=== PATIENT | male | born 1945 | race Caucasian/White ===

== ENCOUNTER 2018-06-12 15:11 | Outpatient (CLI) | payer OTHER ==
--- NOTE | 2018-06-12 16:23 | MRI ---
MRI OF THE LEFT SHOULDER 06/12/18 PROVIDED CLINICAL HISTORY: Left shoulder pain. FINDINGS: Evaluation is limited by patient motion. There is full thickness, partial width tearing involving the anterior distal supraspinatus tendon at the footplate. The components of the rotator cuff appear otherwise grossly intact. There is a focal o void area of T1 and T2 hypointensity associated with the infraspinatus tendon near the foot plate whi ch presumably reflects sequela of prior calcific tendonitis. The long head biceps tendon appears bubba sly intact and normally located. The glenoid labrum and glenohumeral articular cartilage are suboptimally evaluated but appears grossl y normal. The acromioclavicular joint osteoarthrosis is demonstrated with mild mass effect upon the subjacent s upraspinatus. The amount of fluid within the glenohumeral joint appears physiologic. There is greater than physiologic subacromial subdeltoid bursal fluid. IMPRESSION: 1. Limited exam. 2. Full thickness, partial width tear involving the anterior distal supraspinatus tendon. 3. Acromioclavicular joint osteoarthrosis. POS: [facility]
== END 2018-06-12 15:12 | disposition home or self-care (01) ==
LOC: BICMRI 15:11
PROVIDERS: ATTEND Orthopaedic Surgery
DX: M75.102 Unspecified rotator cuff tear or rupture of left shoulder, not specified as traumatic (principal); M19.012 Primary osteoarthritis, left shoulder

== ENCOUNTER 2018-06-23 01:52 | Outpatient (CLI) | payer OTHER ==
[2018-06-23 12:16] LABS: Hemoglobin 15.2 g/dL (14.0-18.0); Mean Corpuscular HGB CONC 32.6 g/dL (32.0-36.0); Mean Corpuscular Hemoglobin 30.7 pg (27.0-31.0); Mean Corpuscular Volume 94.2 fL (78.0-98.0); Mean Platelet Volume 8.7 fL (7.4-10.4); Platelet Count 187 thou/uL (130-400); Red Blood Cell (RBC) Count 4.94 mill/uL (4.70-6.10); White Blood Cell (WBC) Count 6.8 thou/uL (4.8-10.8)
[2018-06-23 12:40] LABS: Anion Gap 10 mmol/L (10-20); BUN (Urea Nitrogen) 16 mg/dL (8.4-25.7); Calc. Creatinine Clearance 0 mL/min (70-130); Calcium 10.5 mg/dL (7.8-10.44); Carbon Dioxide 30 mmol/L (23-31); Chloride 106 mmol/L (98-107); Estimated GFR-MDRD 72; Glucose 100 mg/dL (83-110); Sodium 142 mmol/L (136-145)
--- NOTE | 2018-06-24 16:13 | EKG ---
Test Reason : Blood Pressure : / mmHG Vent. Rate : 059 BPM Atrial Rate : 059 BPM P-R Int : 180 ms QRS Dur : 148 ms QT Int : 424 ms P-R-T Axes : 039 -53 033 degrees QTc Int : 419 ms Sinus bradycardia Right bundle branch block Left Anterior Fascicular Block Moderate voltage criteria for LVH, may be normal variant Abnormal ECG Confirmed by MODESTO WALLACE ([id number]) on 06/24/2018 4:13:19 PM Referred By: APARNA Confirmed By:MODESTO WALLACE
== END 2018-06-23 01:53 | disposition home or self-care (01) ==
LOC: LABBT 01:52
PROVIDERS: ATTEND Orthopaedic Surgery
DX: Z01.818 Encounter for other preprocedural examination (principal); M75.102 Unspecified rotator cuff tear or rupture of left shoulder, not specified as traumatic
CPT/HCPCS: 80048; 85027; 93005; 93010

== ENCOUNTER 2018-06-27 05:57 | Day surgery (SDC) | payer OTHER ==
[2018-06-23 11:18] VITALS: BMI 26.6
[2018-06-27] MEDS ORDERED: Fentanyl 100 MCG/2 ML VIAL ONE (06:34)
[2018-06-27] MEDS ORDERED: Midazolam HCl 2 mg/2 ml Vial ONE (06:34)
[2018-06-27] MEDS ORDERED: Lidocaine 1% (PF) 30 ML VIAL ONE (06:34)
[2018-06-27] MEDS ORDERED: Promethazine HCl 25 MG/ML VIAL IM PRN (07:06)
[2018-06-27] MEDS ORDERED: Fentanyl 100 MCG/2 ML VIAL IV PRN (07:06)
[2018-06-27] MEDS ORDERED: Zolpidem Tartrate 5 MG TAB PO PRN (07:06)
[2018-06-27] MEDS ORDERED: traMADol HCl 50 MG TAB PO PRN ×2 (07:06)
[2018-06-27] MEDS ORDERED: Ondansetron PF 4 MG/2 ML Vial IVP PRN (07:06)
[2018-06-27] MEDS ORDERED: HYDROcodone/Acetaminophen 10/325 mg Tablet PO PRN ×2 (07:06)
[2018-06-27] MEDS ORDERED: Ropivacaine 0.2% 550 ML 550 ML NERVE BLCK SCH (07:06)
--- NOTE | 2018-06-27 10:36 | OP ---
DATE OF PROCEDURE: 06/27/2018 PREOPERATIVE DIAGNOSIS: Left rotator cuff tear. POSTOPERATIVE DIAGNOSIS: Left rotator cuff tear. PROCEDURE PERFORMED: Left double-row arthroscopic rotator cuff repair using 2 double-loaded corkscrew anchors and 2 self-punching SwiveLock. ANESTHESIA: General. ESTIMATED BLOOD LOSS: Minimal. SPECIMENS: None. DRAINS: None. COMPLICATIONS: None. DESCRIPTION OF PROCEDURE: The patient was taken to the operating room, where general anesthesia was induced. The patient was placed in right lateral decubitus position. Left arm was placed in 15 pounds of traction and prepped and draped in sterile fashion. Scope was placed in the glenohumeral joint, which appeared to be free of disease except for subacromial bursa, performed extensive bursectomy. CA ligament was taken down. He had some degeneration of his distal clavicle. There was no significant inferior osteophyte and I elected to leave this area alone. He had a full-thickness rotator cuff tear. I freshened up the greater tuberosity with a shaver and bur. I freshened up the rotator cuff tear with a shaver and placed 2 suture anchors through and passed sutures through the rotator cuff, tied down to good watertight repair, then reinforced with a double-row type repair in a cross-cross pattern. Sutures cut, shoulders irrigated and the skin was closed with nylon sutures. Sterile dressings were applied. Job ID: [id number]
[2018-06-27] MEDS ORDERED: Ketorolac Tromethamine 30 MG/ML VIAL IVP SCH (12:00)
[2018-06-27] MEDS ORDERED: Ropivacaine 0.2% HCl/PF (40 MG/20 ML VIAL) ONE (13:57)
[2018-06-27] MEDS ORDERED: Ropivacaine 0.5% HCl/PF (150 MG/30 ML VIAL) ONE (13:57)
[2018-06-27] MEDS ORDERED: PROPOFOL 200 MG/20 ML VIAL ONE (14:24)
[2018-06-27] MEDS ORDERED: Lidocaine 1% PF 5 ML VIAL ONE (14:24)
[2018-06-27] MEDS ORDERED: Rocuronium Bromide 10 MG/ML (10ML VIAL) ONE (14:24)
[2018-06-27] MEDS ORDERED: Ondansetron PF 4 MG/2 ML Vial ONE (14:24)
[2018-06-27] MEDS ORDERED: Ketorolac Tromethamine 30 MG/ML VIAL ONE (14:24)
== END 2018-06-27 12:25 | disposition home or self-care (01) ==
LOC: SDC 05:57
PROVIDERS: ATTEND Orthopaedic Surgery
PROC: 0LQ24ZZ Repair Left Shoulder Tendon, Percutaneous Endoscopic Approach (ICD-10-PCS; principal; 2018-06-27)
DX: M75.122 Complete rotator cuff tear or rupture of left shoulder, not specified as traumatic (principal); Z90.89 Acquired absence of other organs; Z79.899 Other long term (current) drug therapy; Z98.890 Other specified postprocedural states
CPT/HCPCS: A4306; C1713; J1885; J2001; J2250; J2405; J2704; J2795; J3010

== ENCOUNTER 2025-02-16 14:50 | Outpatient (CLI) | payer OTHER | END 2025-02-16 14:51 | disposition home or self-care (01) | LOC: ULT 14:50 | PROVIDERS: ATTEND Family Medicine | DX: G45.8 Other transient cerebral ischemic attacks and related syndromes (principal); I65.23 Occlusion and stenosis of bilateral carotid arteries | CPT/HCPCS: 93880 ==